=== PATIENT | female | born 1980 | race Caucasian/White ===

== ENCOUNTER → 2024-09-16 10:32 | Outpatient (REF) | payer OTHER, SELFPAY ==
[2024-09-16 12:06] LABS: Rubella Positive
[2024-09-17 13:23] LABS: Mumps Virus IgG Positive; Rubeola (Measles) IgG Positive; Varicella Zoster IgG (VZV) Positive
[2024-09-17 19:28] LABS: Hepatitis B Surface Antibody Negative
[2024-09-18 08:00] LABS: Quantiferon Mitogen minus NIL 9.95 IU/mL; Quantiferon NIL 0.05 IU/mL; Quantiferon Plus TB1 minus NIL 0.01 IU/mL (<=0.34); Quantiferon Plus TB2 minus NIL 0.01 IU/mL (<=0.34); Quantiferon TB Gold Plus Negative (Negative)
== END ==
LOC: OHS 10:32
PROVIDERS: ATTENDING PHYSICIAN Nurse Practitioner Family
DX: Z23 Encounter for immunization (principal)
CPT/HCPCS: 36415; 86480; 86706; 86735; 86762; 86765; 86787